=== PATIENT | male | born 1990 | race African-American/Black ===

== ENCOUNTER → 2023-10-29 | Day surgery (SDC) | payer BC, OTHER ==
[2023-10-21 14:04] VITALS: BMI 26.4
[2023-10-29 11:38] VITALS: TEMP 97.3
[2023-10-29 11:40] VITALS: BP 106/53; PULSE 52; RESP 19
== END | disposition home or self-care (01) ==
LOC: FASU-ENDO 09:33
PROVIDERS: ATTEND Internal Medicine Gastroenterology
PROC: 0DJD8ZZ Inspection of Lower Intestinal Tract, Via Natural or Artificial Opening Endoscopic (ICD-10-PCS; principal; 2023-10-29 10:47)
DX: Z12.11 Encounter for screening for malignant neoplasm of colon (principal); K64.1 Second degree hemorrhoids